=== PATIENT | male | born 1985 | race Hispanic/Latino ===

== ENCOUNTER 2020-02-02 10:33 | Emergency (ER) | payer SELFPAY ==
[2020-02-02] MEDS ORDERED: levoFLOXacin 750 MG TAB ONE (11:38)
[2020-02-02] MEDS ORDERED: HYDROCODONE/APAP 10/325 TAB ONE (11:39)
[2020-02-02 12:12] LABS: Absolute Lymphocytes (CBC) 1.4 K/uL (0.7-4.9); Basophils % 1.4 % (0-1.3); Hematocrit 41.2 % (39.6-49.0); Lymphocytes % 18.3 % (15.3-44.8); MPV 9.7 fL (7.6-11.3); RBC Red Blood Cell Count 4.54 M/uL (4.33-5.43)
--- NOTE | 2020-02-02 12:12 | RAD REPORT ---
EXAM DESCRIPTION: CT - Soft Tissue Neck W/Contr - 02/02/2020 11:59 am CLINICAL HISTORY: Neck pain/ear pain COMPARISON: None. TECHNIQUE: Computed axial tomography of the neck was obtained. 50 cc Isovue 300 was administered in travenously. Coronal and sagittal reconstruction was performed. All CT scans are performed using dose optimization technique as appropriate and may include automated exposure control or mA/KV adjustment according to patient size. FINDINGS: The pharynx, tongue base, larynx and subglottic trachea appear unremarkable A 25 millimeter left parotid mass The right parotid, submandibular and thyroid glands appear unremarkable. No lymphadenopathy is seen Fluid within the mastoids not present IMPRESSION: 25 millimeter left parotid mass may represent a lymph node or neoplasm. Follow-up ultra sound in couple of weeks recommended for re-evaluation
[2020-02-02 12:13] LABS: BUN Blood Urea Nitrogen 10 mg/dL (7-18); Bicarbonate 29 mmol/L (21-32); Glucose Level 87 mg/dL (74-106); Potassium 4.3 mmol/L (3.5-5.1); Sodium Level 138 mmol/L (136-145)
--- NOTE | 2020-02-02 14:18 | ER ---
Nurse's Notes [facility] Name: Robert Wilkins Age: 34 yrs Sex: Male : 1985 Arrival Date: 02/02/2020 Time: 10:38 Bed 16 Private MD: Diagnosis: left Ear Pain Presentation: 02/01 11:04 Chief complaint: Patient states: L ear infection x 4 days. Reports fever since last ca1 night. Denies cough, congestion. Reports L ear pain, and drainage. Coronavirus screen: Patient denies fever greater than 100.4F, cough, shortness of breath, or difficulty breathing. Proceed with normal triage process. Ebola Screen: Patient negative for fever greater than or equal to 101.5 degrees Fahrenheit, and additional compatible Ebola Virus Disease symptoms Patient denies exposure to infectious person. Patient denies travel to an Ebola-affected area in the 21 days before illness onset. No symptoms or risks identified at this time. Initial Sepsis Screen: Does the patient meet any 2 criteria? No. Patient's initial sepsis screen is negative. Does the patient have a suspected source of infection? No. Patient's initial sepsis screen is negative. Risk Assessment: Do you want to hurt yourself or someone else? Patient reports no desire to harm self or others. Onset of symptoms was January 30, 2020. 11:04 Method Of Arrival: Ambulatory ca1 11:04 Acuity: CONCHA 4 ca1 Historical: - Allergies: 11:08 No Known Allergies; ca1 - Home Meds: 11:08 None [Active]; ca1 - PMHx: 11:08 None; ca1 - PSHx: 11:08 Ankle Surgery R; R testicle; ca1 - Immunization history:: Adult Immunizations up to date, Flu vaccine is not up to date. - Social history:: Smoking status: Patient denies any tobacco usage or history of. Screenin:30 Abuse screen: Denies threats or abuse. Denies injuries from another. Nutritional jl7 screening: No deficits noted. Tuberculosis screening: No symptoms or risk factors identified. Fall Risk IV access (20 points). Assessment: 11:30 General: Appears in no apparent distress. uncomfortable, Behavior is calm, cooperative, jl7 appropriate for age. Pain: Complains of pain in left ear and left jaw Pain currently is 10 out of 10 on a pain scale. Neuro: Level of Consciousness is awake, alert, obeys commands, Oriented to person, place, time, situation. Cardiovascular: Patient's skin is warm and dry. Respiratory: Airway is patent Respiratory effort is even, unlabored, Respiratory pattern is regular, symmetrical. EENT: Oral mucosa is moist. Derm: Skin is pink, warm \T\ dry. 12:30 Reassessment: Patient appears in no apparent distress at this time. Patient and/or jl7 family updated on plan of care and expected duration. Pain level reassessed. Patient is alert, oriented x 3, equal unlabored respirations, skin warm/dry/pink. Reports pain 2/10 Patient states feeling better. 13:30 Reassessment: Patient appears in no apparent distress at this time. No changes from jl7 previously documented assessment. Patient and/or family updated on plan of care and expected duration. Pain level reassessed. Patient is alert, oriented x 3, equal unlabored respirations, skin warm/dry/pink. Vital Signs: 11:04 BP 125 / 82; Pulse 68; Resp 16 S; Temp 98.9(O); Pulse Ox 100% on R/A; Weight 83.91 kg ca1 (R); Height 5 ft. 6 in. (167.64 cm) (R); Pain 10/10; 14:00 BP 121 / 80; Pulse 70; Resp 15 S; Pulse Ox 100% on R/A; jl7 11:04 Body Mass Index 29.86 (83.91 kg, 167.64 cm) ca1 ED Course: 10:38 Patient arrived in ED. ag5 10:48 Jean Carlos Wick MD is Attending Physician. kdr 11:06 Triage completed. ca1 11:08 Arm band placed on right wrist. ca1 11:30 Bed in low position. Call light in reach. Side rails up X 1. jl7 11:30 Initial lab(s) drawn, by me, sent to lab. Inserted saline lock: 20 gauge in left jl7 antecubital area, using aseptic technique. Blood collected. 11:32 Radha Hamlin, FACUNDO is Primary Nurse. jl7 11:59 Soft Tissue Neck W/Contr In Process Unspecified. EDMS 14:00 No provider procedures requiring assistance completed. IV discontinued, intact, jl7 bleeding controlled, No redness/swelling at site. Pressure dressing applied. 14:01 Megha Rojas MD is Referral Physician. kdr Administered Medications: 11:41 Drug: [place] 10 mg-325 mg 1 tabs Route: PO; jl7 12:30 Follow up: Response: No adverse reaction; Pain is decreased jl7 11:41 Drug: LevaQUIN 750 mg Route: PO; jl7 13:49 Follow up: Response: No adverse reaction jl7 Outcome: 14:00 Discharged to home ambulatory. jl7 14:00 Condition: stable 14:00 Discharge instructions given to patient, Instructed on discharge instructions, follow up and referral plans. medication usage, Demonstrated understanding of instructions, follow-up care, medications, Prescriptions given X 2. 14:17 Discharge ordered by . kdr 14:44 Patient left the ED. jl7 Signatures: Dispatcher [employer] EDMS Jean Carlos Wick MD MD kdr Leal, Jahala RN RN jl7 Janeth Krishnamurthy RN RN [facility]
--- NOTE | 2020-02-02 14:18 | EDPHYS ---
Physician Documentation [facility] Name: Robert Wilkins Age: 34 yrs Sex: Male : 1985 Arrival Date: 02/02/2020 Time: 10:38 Bed 16 Private MD: ED Physician Jean Carlos Wick HPI: 02/01 15:41 This 34 yrs old Male presents to ER via Ambulatory with complaints of Fever, kdr Ear Pain. 15:42 The patient presents with an injury, pain, tenderness. The complaints affect the left kdr ear. Onset: The symptoms/episode began/occurred gradually, 3 week(s) ago. Modifying factors: The symptoms are alleviated by nothing, the symptoms are aggravated by pulling on ears, touching. Associated signs and symptoms: Pertinent positives:. 15:42 Severity of symptoms: At their worst the symptoms were mild moderate just prior to kdr arrival, in the emergency department the symptoms are unchanged. The patient has not experienced similar symptoms in the past. The patient has not recently seen a physician. The patient states that about 3-4 weeks ago he had cotton stuck in his ear and after about a week, he flushed out a piece of cotton but then started to have drainage and more pain. The patient has now had worsening pain and drainage for more than three weeks. He has felt feverish in the past but is without measured fever. he has had no other associated s/s. Historical: - Allergies: 11:08 No Known Allergies; ca1 - Home Meds: 11:08 None [Active]; ca1 - PMHx: 11:08 None; ca1 - PSHx: 11:08 Ankle Surgery R; R testicle; ca1 - Immunization history:: Adult Immunizations up to date, Flu vaccine is not up to date. - Social history:: Smoking status: Patient denies any tobacco usage or history of. ROS: 10:48 Constitutional: Negative for fever, chills, and weight loss. kdr 15:42 Eyes: Negative for injury, pain, redness, and discharge, Cardiovascular: Negative for kdr chest pain, palpitations, and edema, Respiratory: Negative for shortness of breath, cough, wheezing, and pleuritic chest pain, Abdomen/GI: Negative for abdominal pain, nausea, vomiting, diarrhea, and constipation, Back: Negative for injury and pain, : Negative for injury, bleeding, discharge, and swelling, MS/Extremity: Negative for injury and deformity, Skin: Negative for injury, rash, and discoloration, Neuro: Negative for headache, weakness, numbness, tingling, and seizure activity. Psych: Negative for depression, anxiety, suicide ideation, homicidal ideation, and hallucinations, Allergy/Immunology: Negative for hives, rash, and allergies, Endocrine: Negative for neck swelling, polydipsia, polyuria, polyphagia, and marked weight changes, Hematologic/Lymphatic: Negative for swollen nodes, abnormal bleeding, and unusual bruising. 15:42 ENT: Positive for drainage from ear(s), ear pain, neck and submandibular pain, Negative for foreign body sensation, tinnitus, sinus pain, sore throat, dental pain, difficulty swallowing, difficulty handling secretions, hoarseness. Exam: 15:42 Constitutional: This is a well developed, well nourished patient who is awake, alert, kdr and in no acute distress. Head/Face: Normocephalic, atraumatic. Eyes: Pupils equal round and reactive to light, extra-ocular motions intact. Lids and lashes normal. Conjunctiva and sclera are non-icteric and not injected. Cornea within normal limits. Periorbital areas with no swelling, redness, or edema. Chest/axilla: Normal chest wall appearance and motion. Nontender with no deformity. No lesions are appreciated. Cardiovascular: Regular rate and rhythm with a normal S1 and S2. No gallops, murmurs, or rubs. Normal PMI, no JVD. No pulse deficits. 15:42 ENT: External ear(s): are unremarkable, Ear canal(s): swelling, of the left canal, TM's: not visable, Swollen canal - no obvious bleeding or erythema. The canal does not completely obstruct the canal. No debris, or other indication of infection, Examination of the other ear shows no obvious abnormality, Posterior pharynx: is normal, Voice: is normal. 15:42 Neck: External neck: is normal, no acute changes, tenderness, that is mild, of the kdr left lateral aspect of neck. Vital Signs: 11:04 BP 125 / 82; Pulse 68; Resp 16 S; Temp 98.9(O); Pulse Ox 100% on R/A; Weight 83.91 kg ca1 (R); Height 5 ft. 6 in. (167.64 cm) (R); Pain 10/10; 14:00 BP 121 / 80; Pulse 70; Resp 15 S; Pulse Ox 100% on R/A; jl7 11:04 Body Mass Index 29.86 (83.91 kg, 167.64 cm) ca1 MDM: 14:17 Patient medically screened. kdr 15:42 Data reviewed: vital signs, nurses notes, lab test result(s), radiologic studies. kdr Counseling: I had a detailed discussion with the patient and/or guardian regarding: the historical points, exam findings, and any diagnostic results supporting the discharge/admit diagnosis, lab results, radiology results, the need for outpatient follow up. Special discussion: I discussed with the patient/guardian in detail that at this point there is no indication for admission to the hospital. It is understood, however, that if the symptoms persist or worsen the patient needs to return immediately for re-evaluation. ED course: The patient had mild tenderness in the left ear and inferior to the ear. The patient had significant relief with the medications given. he was stable and non acute in the ED. I d/w the patient the CT results explaining the mass/lymph node and the need for follow-up. Since he stated he was having active drainage from th effected ear, I did not wish to put an ear wick in the canal to restrict the drainage. The patient left the ED in good condition and did not appear toxic in any way at any time during his visit to the ED. 02/01 11:39 Order name: Soft Tissue Neck W/Contr; Complete Time: 13:39 EDMS 02/01 11:55 Order name: Basic Metabolic Panel; Complete Time: 13:39 EDMS 02/01 11:55 Order name: CBC with Automated Diff; Complete Time: 13:39 EDMS Administered Medications: 11:41 Drug: [place] 10 mg-325 mg 1 tabs Route: PO; jl7 12:30 Follow up: Response: No adverse reaction; Pain is decreased jl7 11:41 Drug: LevaQUIN 750 mg Route: PO; jl7 13:49 Follow up: Response: No adverse reaction jl7 Disposition: 02/02/20 14:17 Discharged to Home. Impression: left Ear Pain. - Condition is Stable. - Discharge Instructions: Otitis Media, Adult, [id number]. - Prescriptions for Amoxicillin 500 mg Oral Capsule - take 2 capsule by ORAL route every 8 hours for 10 days; 60 tablet. Tylenol- Codeine #3 300-30 mg Oral Tablet - take 2 tablet by ORAL route every 6 hours As needed; 30 tablet. - Medication Reconciliation Form, Thank You Letter, Antibiotic Education, Prescription Opioid Use form. - Follow up: Private Physician; When: 2 - 3 days; Reason: If symptoms return, Further diagnostic work-up, Recheck today's complaints, Continuance of care, Re-evaluation by your physician. Follow up: Megha Rojas MD; When: 2 - 3 days; Reason: If symptoms return, Further diagnostic work-up, Recheck today's complaints, Continuance of care, Re-evaluation by your physician. - Problem is an ongoing problem. - Symptoms have improved. - Notes: If your pain gets any worse please come back immediately otherwise follow-up with Dr. Rojas. Signatures: Dispatcher [employer] EDMS Jean Carlos Wick MD MD [facility] Radha Hamlin RN RN jl7 Janeth Krishnamurthy RN RN ca1 Corrections: (The following items were deleted from the chart) 14:44 14:17 02/02/2020 14:17 Discharged to Home. Impression: left Ear Pain. Condition is jl7 Stable. Forms are Medication Reconciliation Form, Thank You Letter, Antibiotic Education, Prescription Opioid Use. Follow up: Private Physician; When: 2 - 3 days; Reason: If symptoms return, Further diagnostic work-up, Recheck today's complaints, Continuance of care, Re-evaluation by your physician. Follow up: Megha Rojas; When: 2 - 3 days; Reason: If symptoms return, Further diagnostic work-up, Recheck today's complaints, Continuance of care, Re-evaluation by your physician. Problem is an ongoing problem. Symptoms have improved. kdr
[2020-02-02 14:51] VITALS: TEMP 98.9; O2SAT 100
[2020-02-02 14:53] VITALS: BP 121/80
== END 2020-02-02 14:44 | disposition home or self-care (01) ==
LOC: ER 10:33
DX: H92.02 Otalgia, left ear (principal)
CPT/HCPCS: 36415; 70491; 80048; 85025; 99284; Q9967